=== PATIENT | male | born 1960 | race African-American/Black ===

== ENCOUNTER 2020-10-17 14:39 | Inpatient (IN) | payer MEDICAID, OTHER ==
[~2020-10-17] VITALS: Ht 188 cm; Wt 96.6 kg
[~2020-10-17 14:39] MED LIST: ASPI-986 PO
[2020-10-17 18:01] LABS: CHLORIDE 99 mEq/L (98-107)
[2020-10-17 18:02] LABS: HEMATOCRIT. 44.1 % (42.0-52.0); HEMOGLOBIN. 14.9 g/dL (14.0-18.0); MEAN CORPUSCULAR HEMOGLOBIN 26.8 pg (28.0-32.0); MEAN CORPUSCULAR VOLUME 79.2 fL (80.0-94.0); MEAN PLATELET VOLUME 8.3 fl (7.4-10.4); PLATELET 288 x1000/uL (130-400); RED BLOOD CELL COUNT 5.57 mill/uL (4.7-6.1); RED CELL DISTRIBUTION WIDTH 14.1 % (11.6-14.6)
[2020-10-17 18:27] LABS: INR 1.1; PROTHROMBIN TIME 11.8 sec (9.6-11.0)
[2020-10-17 18:36] LABS: PLATELET ESTIMATE NORMAL
[2020-10-17] MEDS ORDERED: CEFTRIAXONE 1 G PREMIX 50 ML IV ONE (19:00)
[2020-10-17] MEDS ORDERED: AZITHROMYCIN 500 MG in DEXT 5% WATER 250 ML IV SCH (19:00)
[2020-10-17] MEDS ORDERED: DOCUSATE SODIUM 100MG CAPSULE PO PRN (20:45)
[2020-10-17] MEDS ORDERED: IPRATROPIUM/ALBUTEROL 0.5-3(2.5)MG/3ML NEB NEB PRN (20:45)
[2020-10-17] MEDS ORDERED: ACETAMINOPHEN 325MG TABLET PO PRN ×2 (20:45)
[2020-10-17] MEDS ORDERED: GUAIFENESIN 200MG/10ML SUGAR FREE UDC PO PRN (20:45)
[2020-10-17] MEDS ORDERED: NITROGLYCERIN 0.4MG TABLET SL SL PRN (20:45)
[2020-10-17] MEDS ORDERED: CLONIDINE 0.1MG TABLET PO PRN (20:45)
[2020-10-17] MEDS ORDERED: ONDANSETRON HCL 4MG/2ML INJ IV PRN (20:45)
[2020-10-17] MEDS ORDERED: MAGNESIUM/ALUMINUM HYDROXIDE/SIMETHICONE 30ML UDC PO PRN (20:45)
[2020-10-17] MEDS ORDERED: ZOLPIDEM TARTRATE 5MG TABLET PO PRN (20:45)
[2020-10-17] MEDS ORDERED: DEXTROSE 50% WATER 50ML SYRINGE IV PRN (21:00)
[2020-10-17] MEDS ORDERED: KETOROLAC 15MG/ML VIAL IV PRN (21:05)
[2020-10-17 21:28] LABS: TOTAL IRON BINDING CAPACITY 277 ug/dL (250-450)
[2020-10-17] MEDS ORDERED: ENOXAPARIN 30MG/0.3ML SYR SUBCUT SCH (21:30)
[2020-10-17 21:44] LABS: FOLIC ACID (FOLATE) SERUM 4.3 ng/mL (>5.38)
[2020-10-17 22:13] LABS: *AMPHETAMINES SCREEN URINE NEGATIVE (NEGATIVE); CANNABINOID URINE SCREEN NEGATIVE (NEGATIVE); PHENCYCLIDINE URINE SCREEN NEGATIVE (NEGATIVE)
[2020-10-17 22:14] LABS: *BARBITURATES SCREEN URINE NEGATIVE (NEGATIVE); *BENZODIAZEPINES SCREEN URINE NEGATIVE (NEGATIVE); *COCAINE SCREEN URINE NEGATIVE (NEGATIVE); METHADONE URINE SCREEN NEGATIVE (NEGATIVE); OPIATES URINE SCREEN NEGATIVE (NEGATIVE)
[2020-10-17] MEDS: BLOOD SUGAR DIAGNOSTIC STRIP TEST SCH (22:15)
[2020-10-17] MEDS: FAMOTIDINE 20MG TABLET PO SCH (22:18)
[2020-10-17] MEDS: ASCORBIC ACID 500 MG TABLET PO SCH (22:18)
[2020-10-17] MEDS: GUAIFENESIN/DM 600MG/30MG ER TAB 12HR PO SCH (22:18)
[2020-10-17] MEDS: INSULIN LISPRO 100 UNITS/ML SUBCUT SCH (22:19)
[2020-10-17] MEDS: ENOXAPARIN 120MG/0.8ML SYR SUBCUT SCH (22:37)
[2020-10-17 23:30] VITALS: BP 98/61
[2020-10-17 23:31] LABS: CREATINE KINASE 85 IU/L (39-308)
[2020-10-17 23:32] LABS: CREATINE KINASE MB FRACTION < 1.0 ng/mL (0.5-3.6)
[2020-10-18 00:11] VITALS: BP 98/61
[2020-10-18 04:00] VITALS: BP 97/62
[2020-10-18] MEDS: SODIUM CHLORIDE 0.9% 1,000 ML IV SCH ×2 (04:26→11:24)
[2020-10-18] MEDS: BLOOD SUGAR DIAGNOSTIC STRIP TEST SCH ×4 (07:01→20:22)
[2020-10-18 07:39] LABS: CHLORIDE 104 mEq/L (98-107)
[2020-10-18 07:41] LABS: HEMATOCRIT. 36.1 % (42.0-52.0); MEAN CORPUSCULAR HEMOGLOBIN 26.2 pg (28.0-32.0); MEAN CORPUSCULAR VOLUME 78.8 fL (80.0-94.0); MEAN PLATELET VOLUME 8.3 fl (7.4-10.4); PLATELET 283 x1000/uL (130-400); RED BLOOD CELL COUNT 4.57 mill/uL (4.7-6.1); RED CELL DISTRIBUTION WIDTH 13.9 % (11.6-14.6)
[2020-10-18 07:46] LABS: CREATINE KINASE MB FRACTION < 1.0 ng/mL (0.5-3.6)
[2020-10-18 07:47] LABS: LDL CHOLESTEROL 72 mg/dL (5-100)
[2020-10-18 07:48] LABS: CREATINE KINASE 78 IU/L (39-308)
[2020-10-18 07:49] LABS: HDL CHOLESTEROL 22 mg/dL (40-59)
[2020-10-18] MEDS: INSULIN LISPRO 100 UNITS/ML SUBCUT SCH ×4 (07:50→20:22)
[2020-10-18] MEDS ORDERED: CEFTRIAXONE 1 G PREMIX 50 ML IV SCH (09:00)
[2020-10-18] MEDS: ASCORBIC ACID 500 MG TABLET PO SCH ×2 (10:19→20:28)
[2020-10-18] MEDS: FAMOTIDINE 20MG TABLET PO SCH ×2 (10:19→20:28)
[2020-10-18] MEDS: GUAIFENESIN/DM 600MG/30MG ER TAB 12HR PO SCH ×2 (10:19→20:28)
[2020-10-18] MEDS: ZINC SULFATE 220 MG ( 50 ) CAPSULE PO SCH (10:20)
[2020-10-18] MEDS: ASPIRIN 81MG EC TABLET PO SCH (10:20)
[2020-10-18] MEDS: ENOXAPARIN 120MG/0.8ML SYR SUBCUT SCH (10:20)
[2020-10-18 13:34] LABS: PLATELET ESTIMATE NORMAL
[2020-10-18] MEDS: AZITHROMYCIN 500 MG in DEXT 5% WATER 250 ML IV SCH (17:09)
[2020-10-18 20:00] VITALS: BP 109/73
[2020-10-18] MEDS: ENOXAPARIN 100MG/ML SYR SUBCUT SCH (20:28)
[2020-10-18] MEDS: CEFTRIAXONE 1,000 MG in DEXTROSE 5% WATER 50 ML IV SCH (20:28)
[2020-10-18] MEDS ORDERED: AZITHROMYCIN 500 MG in DEXT 5% WATER 250 ML IV SCH (21:00)
[2020-10-19] VITALS: BP 124/68
[2020-10-19] MEDS: SODIUM CHLORIDE 0.9% 1,000 ML IV SCH ×2 (00:28→18:41)
[2020-10-19 04:00] VITALS: BP 111/64
[2020-10-19] MEDS: BLOOD SUGAR DIAGNOSTIC STRIP TEST SCH ×4 (07:20→20:55)
[2020-10-19] MEDS: INSULIN LISPRO 100 UNITS/ML SUBCUT SCH ×4 (07:50→20:54)
[2020-10-19 08:34] VITALS: BP 101/68
[2020-10-19] MEDS: FAMOTIDINE 20MG TABLET PO SCH ×2 (09:32→20:54)
[2020-10-19] MEDS: ENOXAPARIN 100MG/ML SYR SUBCUT SCH ×2 (09:32→20:55)
[2020-10-19] MEDS: ASCORBIC ACID 500 MG TABLET PO SCH ×2 (09:32→20:54)
[2020-10-19] MEDS: ASPIRIN 81MG EC TABLET PO SCH (09:32)
[2020-10-19] MEDS: ZINC SULFATE 220 MG ( 50 ) CAPSULE PO SCH (09:32)
[2020-10-19] MEDS: GUAIFENESIN/DM 600MG/30MG ER TAB 12HR PO SCH ×2 (09:34→20:54)
[2020-10-19 12:31] VITALS: BP 106/65
[2020-10-19 16:04] VITALS: BP 111/65
[2020-10-19] MEDS: AZITHROMYCIN 500 MG in DEXT 5% WATER 250 ML IV SCH (16:22)
[2020-10-19 20:00] VITALS: BP 106/63
[2020-10-19] MEDS: CEFTRIAXONE 1,000 MG in DEXTROSE 5% WATER 50 ML IV SCH (20:54)
[2020-10-20] VITALS: BP 114/68
[2020-10-20 04:00] VITALS: BP 105/59
[2020-10-20] MEDS: SODIUM CHLORIDE 0.9% 1,000 ML IV SCH (06:18)
[2020-10-20] MEDS: BLOOD SUGAR DIAGNOSTIC STRIP TEST SCH (07:20)
[2020-10-20] MEDS: INSULIN LISPRO 100 UNITS/ML SUBCUT SCH (07:50)
[2020-10-20 08:24] VITALS: BP 124/76
[2020-10-20] MEDS: ENOXAPARIN 100MG/ML SYR SUBCUT SCH (09:40)
[2020-10-20] MEDS: GUAIFENESIN/DM 600MG/30MG ER TAB 12HR PO SCH (09:40)
[2020-10-20] MEDS: ZINC SULFATE 220 MG ( 50 ) CAPSULE PO SCH (09:40)
[2020-10-20] MEDS: ASPIRIN 81MG EC TABLET PO SCH (09:40)
[2020-10-20] MEDS: ASCORBIC ACID 500 MG TABLET PO SCH (09:40)
[2020-10-20] MEDS: FAMOTIDINE 20MG TABLET PO SCH (10:22)
[2020-10-20 11:04] VITALS: BP 124/76
[2020-10-20 12:08] VITALS: BP 126/72
== END 2020-10-20 17:05 | disposition home or self-care (01) | DRG 203 ==
LOC: ER 14:39 → EDBEDREQTM 21:07 → EDBEDREQ 21:07 → ENRESERV 22:20 → 6WST 10-18
PROVIDERS: ADMIT Internal Medicine; ATTEND Internal Medicine
DX: M94.0 Chondrocostal junction syndrome [Tietze] (principal); J18.9 Pneumonia, unspecified organism; E44.0 Moderate protein-calorie malnutrition; E78.00 Pure hypercholesterolemia, unspecified; E87.1 Hypo-osmolality and hyponatremia; I50.30 Unspecified diastolic (congestive) heart failure; N17.0 Acute kidney failure with tubular necrosis; E11.9 Type 2 diabetes mellitus without complications; J98.11 Atelectasis; Z68.27 Body mass index [BMI] 27.0-27.9, adult; Z88.8 Allergy status to other drugs, medicaments and biological substances; Z79.82 Long term (current) use of aspirin; I25.2 Old myocardial infarction; Z79.51 Long term (current) use of inhaled steroids; Z79.899 Other long term (current) drug therapy; Z79.4 Long term (current) use of insulin
CPT/HCPCS: 36415; 71045; 80053; 80061; 80305; 82550; 82553; 82607; 82746; 82962; 83036; 83540; 83550; 83605; 83615; 83735; 83880; 84145; 84484; 85025; 85379; 93005; 93306; 93970; 99285; J0456; J0696; J1650; J1815; J7060

== ENCOUNTER 2021-03-15 09:44 | Inpatient (IN) | payer MEDICAID, OTHER ==
[~2021-03-15] VITALS: Ht 188 cm; Wt 98.1 kg
[2021-03-15] MEDS ORDERED: HYDROCODONE/ACETAMINOPHEN 5/325MG TABLET PO STA (10:13)
[2021-03-15] MEDS ORDERED: SODIUM CHLORIDE 0.9% 500 ML IV ONE (10:15)
[2021-03-15 10:24] LABS: HEMATOCRIT. 47.2 % (42.0-52.0); HEMOGLOBIN. 15.7 g/dL (14.0-18.0); MEAN CORPUSCULAR HEMOGLOBIN 26.7 pg (28.0-32.0); MEAN CORPUSCULAR VOLUME 80.4 fL (80.0-94.0); MEAN PLATELET VOLUME 8.8 fl (7.4-10.4); PLATELET 205 x1000/uL (130-400); RED BLOOD CELL COUNT 5.87 mill/uL (4.7-6.1); RED CELL DISTRIBUTION WIDTH 13.6 % (11.6-14.6)
[2021-03-15 10:32] LABS: CHLORIDE 99 mEq/L (98-107)
[2021-03-15 10:43] LABS: INR 1.1; PROTHROMBIN TIME 11.8 sec (9.6-11.0)
[2021-03-15] MEDS ORDERED: VANCOMYCIN 1 G PREMIX 200 ML IV ONE (11:00)
[2021-03-15] MEDS ORDERED: PIPERACILLIN/TAZ 3.375G PREMIX 50 ML IV ONE (11:00)
[2021-03-15 11:04] LABS: D-DIMER > 35.20 mg/L FEU (<0.50)
[2021-03-15] MEDS ORDERED: ENOXAPARIN 100MG/ML SYR SUBCUT NR (11:30)
[2021-03-15] MEDS ORDERED: ENOXAPARIN 80MG/0.8ML SYR SUBCUT ONE (11:30)
[2021-03-15 11:45] LABS: PLATELET ESTIMATE NORMAL
[2021-03-15] MEDS ORDERED: ASPIRIN 325MG EC TABLET PO ONE (11:45)
[2021-03-15] MEDS ORDERED: IOHEXOL-350 100 ML BOTTLE ONE (14:31)
[2021-03-15 14:47] VITALS: BP 138/93
[2021-03-15 16:00] VITALS: BP 117/72
[2021-03-15] MEDS ORDERED: POTASSIUM CHLORIDE 20MEQ TABLET SR PO NR (16:00)
[2021-03-15] MEDS ORDERED: DEXTROSE 50% WATER 50ML SYRINGE IV PRN (16:00)
[2021-03-15] MEDS ORDERED: ONDANSETRON HCL 4MG/2ML INJ IV PRN (16:00)
[2021-03-15] MEDS: BLOOD SUGAR DIAGNOSTIC STRIP TEST SCH ×2 (17:22→20:57)
[2021-03-15] MEDS: INSULIN LISPRO 100 UNITS/ML SUBCUT SCH ×2 (17:46→20:57)
[2021-03-15 18:00] VITALS: BP 114/76
[2021-03-15] MEDS: METOPROLOL TARTRATE 25MG TABLET PO SCH ×2 (18:55→20:57)
[2021-03-15 20:00] VITALS: BP 113/79
[2021-03-15] MEDS ORDERED: CEFTRIAXONE 1 G PREMIX 50 ML IV SCH (21:00)
[2021-03-15 22:00] VITALS: BP 120/78
[2021-03-15] MEDS ORDERED: ENOXAPARIN 100MG/ML SYR SUBCUT SCH (23:00)
[2021-03-16] VITALS (12 sets, daily range): BP systolic 110–137; BP diastolic 42–86
[2021-03-16 03:43] LABS: CLARITY URINE CLEAR (CLEAR); COLOR URINE DARK YELLOW (YELLOW); KETONES URINE NEGATIVE (NEGATIVE); LEUKOCYTE ESTERASE URINE NEGATIVE (NEGATIVE); NITRITE URINE NEGATIVE (NEGATIVE); OCCULT BLOOD URINE NEGATIVE (NEGATIVE); PH URINE 5.5 (4.5-8.0); PROTEIN URINE 1+ (NEGATIVE); SPECIFIC GRAVITY URINE 1.035 (1.005-1.030)
[2021-03-16 04:06] LABS: *AMPHETAMINES SCREEN URINE NEGATIVE (NEGATIVE); *BARBITURATES SCREEN URINE NEGATIVE (NEGATIVE)
[2021-03-16 04:07] LABS: *BENZODIAZEPINES SCREEN URINE NEGATIVE (NEGATIVE); *COCAINE SCREEN URINE NEGATIVE (NEGATIVE); CANNABINOID URINE SCREEN NEGATIVE (NEGATIVE); METHADONE URINE SCREEN NEGATIVE (NEGATIVE); OPIATES URINE SCREEN PRESUMTIVE POSITIVE (NEGATIVE); PHENCYCLIDINE URINE SCREEN NEGATIVE (NEGATIVE)
[2021-03-16 06:36] LABS: CHLORIDE 101 mEq/L (98-107)
[2021-03-16] MEDS: INSULIN LISPRO 100 UNITS/ML SUBCUT SCH ×4 (06:39→20:12)
[2021-03-16] MEDS: BLOOD SUGAR DIAGNOSTIC STRIP TEST SCH ×4 (06:39→20:12)
[2021-03-16] MEDS: ACETAMINOPHEN 325MG TABLET PO PRN (06:42)
[2021-03-16 06:46] LABS: BASOPHILS % 0.1 % (0.0-2.0); EOSINOPHILS % 0.1 % (0.0-5.0); HEMATOCRIT. 44.1 % (42.0-52.0); HEMOGLOBIN. 14.7 g/dL (14.0-18.0); LYMPHOCYTES % 10.7 % (20.0-50.0); MEAN CORPUSCULAR HEMOGLOBIN 26.5 pg (28.0-32.0); MEAN CORPUSCULAR VOLUME 79.3 fL (80.0-94.0); MEAN PLATELET VOLUME 8.8 fl (7.4-10.4); MONOCYTES % 7.9 % (2.0-8.0); NEUTROPHILS % 81.2 % (40.0-76.0); PLATELET 232 x1000/uL (130-400); RED BLOOD CELL COUNT 5.56 mill/uL (4.7-6.1); RED CELL DISTRIBUTION WIDTH 13.4 % (11.6-14.6)
[2021-03-16] MEDS: METOPROLOL TARTRATE 25MG TABLET PO SCH ×2 (09:21→20:09)
[2021-03-16] MEDS: ENOXAPARIN 100MG/ML SYR SUBCUT SCH ×2 (09:23→20:10)
[2021-03-16] MEDS: CEFTRIAXONE 1,000 MG in DEXTROSE 5% WATER 50 ML IV SCH (14:25)
[2021-03-17] VITALS (12 sets, daily range): BP systolic 94–139; BP diastolic 51–79
[2021-03-17 06:47] LABS: BASOPHILS % 0.3 % (0.0-2.0); EOSINOPHILS % 0.2 % (0.0-5.0); HEMATOCRIT. 43.1 % (42.0-52.0); HEMOGLOBIN. 14.3 g/dL (14.0-18.0); LYMPHOCYTES % 13.5 % (20.0-50.0); MEAN CORPUSCULAR HEMOGLOBIN 26.4 pg (28.0-32.0); MEAN CORPUSCULAR VOLUME 79.5 fL (80.0-94.0); MEAN PLATELET VOLUME 8.9 fl (7.4-10.4); MONOCYTES % 9.5 % (2.0-8.0); NEUTROPHILS % 76.5 % (40.0-76.0); PLATELET 290 x1000/uL (130-400); RED BLOOD CELL COUNT 5.42 mill/uL (4.7-6.1); RED CELL DISTRIBUTION WIDTH 13.7 % (11.6-14.6)
[2021-03-17] MEDS: BLOOD SUGAR DIAGNOSTIC STRIP TEST SCH ×4 (06:50→20:41)
[2021-03-17] MEDS: INSULIN LISPRO 100 UNITS/ML SUBCUT SCH ×4 (06:54→20:46)
[2021-03-17 07:19] LABS: CHLORIDE 100 mEq/L (98-107)
[2021-03-17] MEDS: ENOXAPARIN 100MG/ML SYR SUBCUT SCH ×2 (08:28→20:41)
[2021-03-17] MEDS: METOPROLOL TARTRATE 25MG TABLET PO SCH ×2 (08:29→20:40)
[2021-03-17] MEDS ORDERED: IOHEXOL-350 100 ML BOTTLE ONE (12:06)
[2021-03-17] MEDS: CEFTRIAXONE 1,000 MG in DEXTROSE 5% WATER 50 ML IV SCH (14:55)
[2021-03-18] VITALS (16 sets, daily range): BP systolic 91–118; BP diastolic 51–75
[2021-03-18] MEDS: INSULIN LISPRO 100 UNITS/ML SUBCUT SCH ×4 (06:00→21:00)
[2021-03-18] MEDS: BLOOD SUGAR DIAGNOSTIC STRIP TEST SCH ×4 (06:01→21:00)
[2021-03-18] MEDS: METOPROLOL TARTRATE 25MG TABLET PO SCH ×2 (08:33→21:35)
[2021-03-18] MEDS: ENOXAPARIN 100MG/ML SYR SUBCUT SCH ×2 (08:33→21:35)
[2021-03-18] MEDS: CEFTRIAXONE 1,000 MG in DEXTROSE 5% WATER 50 ML IV SCH (14:52)
[2021-03-19] VITALS: BP 96/53
[2021-03-19 04:00] VITALS: BP 101/70
[2021-03-19] MEDS: BLOOD SUGAR DIAGNOSTIC STRIP TEST SCH ×4 (07:48→21:51)
[2021-03-19] MEDS: INSULIN LISPRO 100 UNITS/ML SUBCUT SCH ×4 (07:49→21:00)
[2021-03-19] MEDS: METOPROLOL TARTRATE 25MG TABLET PO SCH ×2 (11:27→21:50)
[2021-03-19] MEDS: ACETAMINOPHEN 325MG TABLET PO PRN (11:29)
[2021-03-19] MEDS: ENOXAPARIN 100MG/ML SYR SUBCUT SCH ×2 (12:04→21:51)
[2021-03-19] MEDS: CEFTRIAXONE 1,000 MG in DEXTROSE 5% WATER 50 ML IV SCH (14:48)
[2021-03-19 15:52] LABS: BASOPHILS % 0.5 % (0.0-2.0); EOSINOPHILS % 0.9 % (0.0-5.0); HEMATOCRIT. 36.9 % (42.0-52.0); HEMOGLOBIN. 12.5 g/dL (14.0-18.0); LYMPHOCYTES % 16.7 % (20.0-50.0); MEAN CORPUSCULAR HEMOGLOBIN 26.4 pg (28.0-32.0); MEAN CORPUSCULAR VOLUME 78.1 fL (80.0-94.0); MEAN PLATELET VOLUME 8.4 fl (7.4-10.4); MONOCYTES % 11.2 % (2.0-8.0); NEUTROPHILS % 70.7 % (40.0-76.0); PLATELET 382 x1000/uL (130-400); RED BLOOD CELL COUNT 4.73 mill/uL (4.7-6.1); RED CELL DISTRIBUTION WIDTH 13.9 % (11.6-14.6)
[2021-03-19 15:56] LABS: CHLORIDE 103 mEq/L (98-107)
[2021-03-19] MEDS ORDERED: POTASSIUM CHLORIDE 20MEQ TABLET SR PO NR (16:36)
[2021-03-19 20:00] VITALS: BP 121/72
[2021-03-19] MEDS: ATORVASTATIN CALCIUM 40MG TABLET PO SCH (21:50)
[2021-03-19 23:51] VITALS: BP 108/68
[2021-03-20 04:00] VITALS: BP 119/59
[2021-03-20] MEDS: INSULIN LISPRO 100 UNITS/ML SUBCUT SCH ×4 (07:50→21:00)
[2021-03-20 08:00] VITALS: BP 90/56
[2021-03-20] MEDS: BLOOD SUGAR DIAGNOSTIC STRIP TEST SCH ×4 (08:03→21:00)
[2021-03-20] MEDS: METOPROLOL TARTRATE 25MG TABLET PO SCH ×2 (09:00→21:00)
[2021-03-20] MEDS: ASPIRIN 81MG TABLET PO SCH (09:24)
[2021-03-20] MEDS: ENOXAPARIN 100MG/ML SYR SUBCUT SCH ×2 (09:25→22:38)
[2021-03-20] MEDS ORDERED: LORAZEPAM 2MG/ML CPJ IV NR (11:45)
[2021-03-20] MEDS: CEFTRIAXONE 1,000 MG in DEXTROSE 5% WATER 50 ML IV SCH (16:52)
[2021-03-20 20:00] VITALS: BP 94/52
[2021-03-20] MEDS: ATORVASTATIN CALCIUM 40MG TABLET PO SCH (22:31)
[2021-03-21] VITALS: BP 93/60
[2021-03-21 04:00] VITALS: BP 101/62
[2021-03-21] MEDS: BLOOD SUGAR DIAGNOSTIC STRIP TEST SCH ×4 (07:06→21:02)
[2021-03-21] MEDS: INSULIN LISPRO 100 UNITS/ML SUBCUT SCH ×4 (07:44→21:00)
[2021-03-21 08:00] VITALS: BP 102/68
[2021-03-21] MEDS: METOPROLOL TARTRATE 25MG TABLET PO SCH ×2 (09:00→21:00)
[2021-03-21] MEDS: ASPIRIN 81MG TABLET PO SCH (09:02)
[2021-03-21] MEDS: ENOXAPARIN 100MG/ML SYR SUBCUT SCH ×2 (09:02→21:02)
[2021-03-21 12:00] VITALS: BP 113/79
[2021-03-21 16:00] VITALS: BP 104/64
[2021-03-21 20:00] VITALS: BP 96/57
[2021-03-21] MEDS: ATORVASTATIN CALCIUM 40MG TABLET PO SCH (21:00)
[2021-03-22] VITALS: BP 110/62
[2021-03-22 04:00] VITALS: BP 115/70
[2021-03-22 08:00] VITALS: BP 112/75
[2021-03-22] MEDS: METOPROLOL TARTRATE 25MG TABLET PO SCH ×2 (09:26→21:47)
[2021-03-22] MEDS: ENOXAPARIN 100MG/ML SYR SUBCUT SCH ×2 (09:27→21:47)
[2021-03-22] MEDS: ASPIRIN 81MG TABLET PO SCH (09:27)
[2021-03-22 12:00] VITALS: BP 101/67
[2021-03-22 16:00] VITALS: BP 108/71
[2021-03-22 20:00] VITALS: BP 125/81
[2021-03-22] MEDS: ATORVASTATIN CALCIUM 40MG TABLET PO SCH (21:47)
[2021-03-23] VITALS: BP 104/60
[2021-03-23 04:00] VITALS: BP 96/60
[2021-03-23 05:17] LABS: CHLORIDE 110 mEq/L (98-107)
[2021-03-23 05:25] LABS: BASOPHILS % 0.9 % (0.0-2.0); EOSINOPHILS % 1.6 % (0.0-5.0); HEMATOCRIT. 37.8 % (42.0-52.0); HEMOGLOBIN. 12.7 g/dL (14.0-18.0); LYMPHOCYTES % 26.2 % (20.0-50.0); MEAN CORPUSCULAR HEMOGLOBIN 26.4 pg (28.0-32.0); MEAN CORPUSCULAR VOLUME 78.5 fL (80.0-94.0); MEAN PLATELET VOLUME 7.9 fl (7.4-10.4); MONOCYTES % 13.7 % (2.0-8.0); NEUTROPHILS % 57.6 % (40.0-76.0); PLATELET 425 x1000/uL (130-400); RED BLOOD CELL COUNT 4.82 mill/uL (4.7-6.1)
[2021-03-23 08:00] VITALS: BP 112/67
[2021-03-23] MEDS: METOPROLOL TARTRATE 25MG TABLET PO SCH ×2 (08:55→21:45)
[2021-03-23] MEDS: ASPIRIN 81MG TABLET PO SCH (08:55)
[2021-03-23] MEDS: ENOXAPARIN 100MG/ML SYR SUBCUT SCH ×2 (08:56→21:48)
[2021-03-23 12:00] VITALS: BP 101/69
[2021-03-23 16:00] VITALS: BP 99/66
[2021-03-23 20:00] VITALS: BP 117/67
[2021-03-23] MEDS: ATORVASTATIN CALCIUM 40MG TABLET PO SCH (21:45)
[2021-03-24] VITALS: BP 125/76
[2021-03-24 04:00] VITALS: BP 110/81
[2021-03-24 08:00] VITALS: BP 106/67
[2021-03-24] MEDS: ENOXAPARIN 100MG/ML SYR SUBCUT SCH ×2 (08:58→21:24)
[2021-03-24] MEDS: METOPROLOL TARTRATE 25MG TABLET PO SCH ×2 (08:58→21:00)
[2021-03-24] MEDS: ASPIRIN 81MG TABLET PO SCH (08:58)
[2021-03-24 12:00] VITALS: BP 104/67
[2021-03-24 16:00] VITALS: BP 125/80
[2021-03-24 20:00] VITALS: BP_SYST 101; BP_SYST 113; BP_DIAS 58; BP_DIAS 78
[2021-03-24] MEDS: ATORVASTATIN CALCIUM 40MG TABLET PO SCH (21:23)
[2021-03-25] VITALS: BP 100/66
[2021-03-25 04:00] VITALS: BP 105/70
[2021-03-25 08:00] VITALS: BP 106/70
[2021-03-25] MEDS: METOPROLOL TARTRATE 25MG TABLET PO SCH (09:00)
[2021-03-25] MEDS: ASPIRIN 81MG TABLET PO SCH (09:14)
[2021-03-25] MEDS: ENOXAPARIN 100MG/ML SYR SUBCUT SCH (09:14)
[2021-03-25 11:11] VITALS: BP 96/68
[2021-03-25 12:00] VITALS: BP 106/68
== END 2021-03-25 14:33 | DRG 134 ==
LOC: ER 09:51 → 3WST 12:41 → EDBEDREQSVC 12:47 → EDBEDREQ 12:47 → EDBEDREQTM 12:47 → ENRESERV 12:52 → 6EST 03-19 02:23
PROVIDERS: ADMIT Internal Medicine; ATTEND Internal Medicine
DX: I26.99 Other pulmonary embolism without acute cor pulmonale (principal); I21.A1 Myocardial infarction type 2; I82.220 Acute embolism and thrombosis of inferior vena cava; E87.2 Acidosis; I82.432 Acute embolism and thrombosis of left popliteal vein; E11.51 Type 2 diabetes mellitus with diabetic peripheral angiopathy without gangrene; E11.65 Type 2 diabetes mellitus with hyperglycemia; E78.00 Pure hypercholesterolemia, unspecified; E78.5 Hyperlipidemia, unspecified; E87.1 Hypo-osmolality and hyponatremia; E87.6 Hypokalemia; I11.0 Hypertensive heart disease with heart failure; I25.5 Ischemic cardiomyopathy; I16.0 Hypertensive urgency; I50.42 Chronic combined systolic (congestive) and diastolic (congestive) heart failure; I27.20 Pulmonary hypertension, unspecified; Z60.2 Problems related to living alone; Z20.822 Contact with and (suspected) exposure to COVID-19; I25.10 Atherosclerotic heart disease of native coronary artery without angina pectoris; Z86.718 Personal history of other venous thrombosis and embolism; Z87.891 Personal history of nicotine dependence; Z95.5 Presence of coronary angioplasty implant and graft; I25.2 Old myocardial infarction; Z88.8 Allergy status to other drugs, medicaments and biological substances; Z79.899 Other long term (current) drug therapy; Z79.82 Long term (current) use of aspirin; Z68.27 Body mass index [BMI] 27.0-27.9, adult; D72.829 Elevated white blood cell count, unspecified; I82.412 Acute embolism and thrombosis of left femoral vein
CPT/HCPCS: 36415; 71045; 71275; 74174; 80048; 80053; 80305; 81003; 82270; 82962; 83036; 83605; 83880; 84145; 84443; 84484; 85025; 85379; 87426; 93005; 93306; 93970; 97116; 97162; 97530; 99291; J0696; J1650; J1815; J2543; J3370; J7040; J7060; Q9967

== ENCOUNTER 2024-02-25 12:05 | Emergency (ER) | payer MEDICAID ==
[~2024-02-25] VITALS: Ht 175.3 cm; Wt 91.0 kg
[~2024-02-25 12:05] MED LIST changes: +ASPI-1160 PO; -ASPI-986 PO; +CLOP-31 PO; +LIP40 PO; +WARF-53 MT
[2024-02-25 12:06] VITALS: O2SAT 99
[2024-02-25 12:10] VITALS: BP 131/87; PULSE 115; RESP 16
[2024-02-25] MEDS ORDERED: FENTANYL CITRATE/PF 50MCG/ML 2ML VIAL ONE (12:11)
[2024-02-25] MEDS ORDERED: MIDAZOLAM HCL 2 MG/2 ML VIAL ONE (12:11)
[2024-02-25] MEDS ORDERED: HEPARIN 1000 UNITS/ML 10ML ONE (12:11)
[2024-02-25] MEDS: ASPIRIN 325MG EC TABLET PO ONE (12:18)
[2024-02-25] MEDS ORDERED: LIDOCAINE HCL 1% 20ML VIAL (Pyxis) INJ ONE (12:31)
[2024-02-25] MEDS ORDERED: VERAPAMIL HCL 2.5 MG/1 ML 2ML VIAL IV ONE (12:31)
[2024-02-25 12:35] LABS: BASOPHILS % 0.6 % (0.0-2.0); EOSINOPHILS % 0.1 % (0.0-5.0); HEMATOCRIT. 47.1 % (42.0-52.0); HEMOGLOBIN. 15.6 g/dL (14.0-18.0); LYMPHOCYTES % 17.2 % (20.0-50.0); MEAN CORPUSCULAR HGB CONC 33.2 g/dL (31.0-37.0); MEAN CORPUSCULAR VOLUME 81.3 fL (80.0-94.0); MEAN PLATELET VOLUME 8.4 fl (7.4-10.4); MONOCYTES % 3.5 % (2.0-8.0); NEUTROPHILS % 78.6 % (40.0-76.0); PLATELET 316 x1000/uL (130-400); RED BLOOD CELL COUNT 5.79 mill/uL (4.7-6.1); RED CELL DISTRIBUTION WIDTH 14.1 % (11.6-14.6)
[2024-02-25] MEDS ORDERED: DIPHENHYDRAMINE 50MG/ML VIAL ONE (12:43)
[2024-02-25] MEDS ORDERED: EPINEPHRINE 0.1MG/ML (1:10,000) 10ML SYR ONE ×2 (12:43→13:13)
[2024-02-25 12:47] LABS: ALANINE AMINOTRANSFERASE 26 IU/L (10-49); ALBUMIN 4.7 g/dL (3.2-4.8); ASPARTATE AMINOTRANSFERASE 30 IU/L (<34); BILIRUBIN TOTAL 0.5 mg/dL (0.1-1.0); CALCIUM 9.4 mg/dL (8.7-10.4); CARBON DIOXIDE 22 mEq/L (21-32); CHLORIDE 102 mEq/L (98-107); CREATININE 1.3 mg/dL (0.6-1.3); GLUCOSE 281 mg/dL (70-105); POTASSIUM 4.3 mEq/L (3.5-5.1); PROTEIN TOTAL 8.3 g/dL (6.0-8.3); SODIUM 136 mEq/L (136-145); UREA NITROGEN BLOOD 9 mg/dL (9-23)
[2024-02-25] MEDS ORDERED: ETOMIDATE 2MG/ML 10ML VIAL IV ONE (13:00)
[2024-02-25] MEDS ORDERED: SUCCINYLCHOLINE CHLORIDE 200MG/10ML IV ONE (13:00)
[2024-02-25 13:09] LABS: TROPONIN I HIGH SENSITIVITY 643 ng/L (3.0-53)
[2024-02-25] MEDS ORDERED: EPINEPHRINE 5 MG in SODIUM CHLORIDE 0.9% 250 ML IV PRN (13:15)
== END 2024-02-25 19:34 | disposition admitted as inpatient to this hospital (09) ==
LOC: ER 12:38
DX: I21.9 Acute myocardial infarction, unspecified (principal); I25.10 Atherosclerotic heart disease of native coronary artery without angina pectoris; E78.00 Pure hypercholesterolemia, unspecified; I10 Essential (primary) hypertension; I25.2 Old myocardial infarction
CPT/HCPCS: 80053; 83880; 85025; 84484; 36415; 93458; 92920; 31500 ×2; 93005; 99291; Z7610 ×9; C1725; C1893; C1769 ×2; J3010; J1200; J3490 ×3; J1644 ×2; J2250; C1887 ×2; 94002